=== PATIENT | male | born 1940 | race Caucasian/White ===

== ENCOUNTER 2018-05-13 15:51 | Emergency (ER) | payer MEDICARE ==
[~2018-05-13] VITALS: Ht 175.3 cm; Wt 63.6 kg
[~2018-05-13 15:51] MED LIST: APIDRA SC; ATENOLOL50 MG OR; AUGMENTIN500TAB PO; AZATHIOPRINE50 MG OR; BLOOD GLUCOSE TEST S SC; CELLCEPT500 MG OR; CIPRO250 MG OR; CIPROFLOXACN500 MG PO; CYCLOBENZAPR10 MG PO; DOXYCYCL HYC100 MG PO; FLEXERIL OR; FLUTICASONE50 MCG; FUROSEMIDE20 MG OR; HUMALOG 751000 UNITS SC; IMODIUM OR; LISINOPRIL20 MG OR; LISINOPRIL20 MG PO; LOMOTIL2.5 MG PO; MECLIZINE25 MG PO; MESTINON60 MG OR; MESTINON60 MG PO; MONITOR SC; NASACORT AQ55 MCG/AC; NOVOLOG MIX SC; NOVOLOG MIX100 U/ML SC; OMEPRAZOLE20 MG OR; ONE TOUCH ULTRA 100 XX; PREDNISONE5 MG PO; ROCEPHIN 1 GM1 GM IM; STARLIX120 MG OR; STARLIX60 MG PO; ZYRTEC10 MG OR; [UNRECOGNIZED DRUG - OTHER] PO
[2018-05-13 16:34] LABS: HEMATOCRIT 38.5 % (39.0-50.0); HEMOGLOBIN 12.2 g/dl (14.0-18.0); IMMATURE GRANULOCYTES 0.9 % (0.0-5.0); MEAN CELL VOLUME 87.5 fL CALC (80.0-100.0); MEAN CORPUSCULAR HGB 27.7 pG CALC (26.0-32.0); MEAN CORPUSCULAR HGB CONC 31.7 g/L CALC (32.0-36.0); NEUT# 10.55 thou/uL (1.82-7.42); RED BLOOD COUNT 4.4 mill/uL (4.70-6.10); RED CELL DISTRI WIDTH 13.9 % (11.5-15.5)
[2018-05-13 16:35] LABS: URINE BILIRUBIN - DIPSTICK NEGATIVE (NEGATIVE); URINE BLOOD DIPSTICK NEGATIVE (NEGATIVE); URINE COLOR YELLOW; URINE GLUCOSE - DIPSTICK NEGATIVE (NEGATIVE); URINE KETONE NEGATIVE (NEGATIVE); URINE LEUK ESTERASE NEGATIVE (NEGATIVE); URINE NITRITE - DIPSTICK NEGATIVE (Negative); URINE PH 5.5 (4.5-8.0); URINE PROTEIN - DIPSTICK TRACE mg/dL (NEG-TRACE); URINE SPECIFIC GRAVITY >=1.030; URINE UROBILINOGEN - DIPSTICK 0.2 E.U./dL (0.2)
[2018-05-13 16:36] LABS: URINE CLARITY CLEAR
[2018-05-13 16:49] LABS: ALBUMIN 3.8 g/dL (3.2-5.0); BILIRUBIN, TOTAL 0.4 mg/dL (0.0-1.4); POTASSIUM 4.9 mmol/l (3.5-5.1); TOTAL PROTEIN 6.7 g/dL (6.3-8.2)
[2018-05-13 16:51] LABS: CREATININE 4.7 mg/dL (0.7-1.3)
[2018-05-13] MEDS ORDERED: MESTINON TIMES180 MG PO (18:06)
[2018-05-13] MEDS ORDERED: PYRIDOSTIGMINE60 MG PO (18:12)
[2018-05-13] MEDS ORDERED: LISINOPRIL20 MG PO (18:18)
[2018-05-13] MEDS ORDERED: GLYBURIDE5 M1 PO (18:22)
[2018-05-13 19:20] VITALS: BP 113/64
== END 2018-05-13 19:20 | disposition short-term general hospital (02) ==
LOC: ED 15:51
PROVIDERS: Family Medicine
DX: N13.2 Hydronephrosis with renal and ureteral calculous obstruction (principal); K56.609 Unspecified intestinal obstruction, unspecified as to partial versus complete obstruction; E11.22 Type 2 diabetes mellitus with diabetic chronic kidney disease; N18.4 Chronic kidney disease, stage 4 (severe); G70.00 Myasthenia gravis without (acute) exacerbation

== ENCOUNTER 2018-05-27 17:20 | Emergency (ER) | payer MEDICARE ==
[~2018-05-27] VITALS: Ht 175.3 cm; Wt 61.4 kg
[~2018-05-27 17:20] MED LIST changes: +GLYBURIDE5 M1 PO; +MESTINON TIMES180 MG PO; +PYRIDOSTIGMINE60 MG PO
[2018-05-27 18:43] LABS: HEMATOCRIT 38.4 % (39.0-50.0); HEMOGLOBIN 12.3 g/dl (14.0-18.0); IMMATURE GRANULOCYTES 1.1 % (0.0-5.0); MEAN CELL VOLUME 87.5 fL CALC (80.0-100.0); NEUT# 6.87 thou/uL (1.82-7.42); RED BLOOD COUNT 4.39 mill/uL (4.70-6.10); RED CELL DISTRI WIDTH 13.9 % (11.5-15.5)
[2018-05-27 18:48] LABS: URINE BILIRUBIN - DIPSTICK NEGATIVE (NEGATIVE); URINE BLOOD DIPSTICK TRACE-INTACT (NEGATIVE); URINE COLOR YELLOW; URINE GLUCOSE - DIPSTICK 250 mg/dL (NEGATIVE); URINE KETONE NEGATIVE (NEGATIVE); URINE LEUK ESTERASE NEGATIVE (NEGATIVE); URINE NITRITE - DIPSTICK NEGATIVE (Negative); URINE PH 5.5 (4.5-8.0); URINE PROTEIN - DIPSTICK TRACE mg/dL (NEG-TRACE); URINE SPECIFIC GRAVITY >=1.030; URINE UROBILINOGEN - DIPSTICK 0.2 E.U./dL (0.2)
[2018-05-27 18:50] LABS: ALBUMIN 3.7 g/dL (3.2-5.0); BILIRUBIN, TOTAL 0.4 mg/dL (0.0-1.4); TOTAL PROTEIN 6.8 g/dL (6.3-8.2)
[2018-05-27 18:52] LABS: URINE CLARITY CLEAR
[2018-05-27 18:53] LABS: CREATININE 2.9 mg/dL (0.7-1.3); POTASSIUM 5.6 mmol/l (3.5-5.1)
[2018-05-27 20:32] VITALS: BP 140/70
== END 2018-05-27 20:37 | disposition home or self-care (01) ==
LOC: ED 17:20
PROVIDERS: Emergency Medicine
DX: M54.9 Dorsalgia, unspecified (principal); R93.5 Abnormal findings on diagnostic imaging of other abdominal regions, including retroperitoneum; K40.90 Unilateral inguinal hernia, without obstruction or gangrene, not specified as recurrent; N20.0 Calculus of kidney

== ENCOUNTER 2018-12-24 11:16 | Observation (INO) | payer MEDICARE ==
[~2018-12-24] VITALS: Ht 274.3 cm; Wt 66.4 kg
[2018-12-24 11:51] LABS: HEMATOCRIT 34.5 % (39.0-50.0); HEMOGLOBIN 10.6 g/dl (14.0-18.0); IMMATURE GRANULOCYTES 0.5 % (0.0-5.0); MEAN CELL VOLUME 90.3 fL CALC (80.0-100.0); MEAN CORPUSCULAR HGB 27.7 pG CALC (26.0-32.0); MEAN CORPUSCULAR HGB CONC 30.7 g/L CALC (32.0-36.0); NEUT# 11.4 thou/uL (1.82-7.42); RED BLOOD COUNT 3.82 mill/uL (4.70-6.10); RED CELL DISTRI WIDTH 14.3 % (11.5-15.5)
[2018-12-24 12:05] LABS: ALBUMIN 3.8 g/dL (3.2-5.0); TOTAL PROTEIN 7.1 g/dL (6.3-8.2)
[2018-12-24 12:15] LABS: BILIRUBIN, TOTAL 0.8 mg/dL (0.0-1.4); CREATININE 4.1 mg/dL (0.7-1.3); POTASSIUM 5.2 mmol/l (3.5-5.1)
[2018-12-24 14:42] VITALS: BP 104/63
[2018-12-24 17:38] LABS: URINE BILIRUBIN - DIPSTICK NEGATIVE (NEGATIVE); URINE BLOOD DIPSTICK SMALL (NEGATIVE); URINE COLOR YELLOW; URINE GLUCOSE - DIPSTICK NEGATIVE (NEGATIVE); URINE KETONE NEGATIVE (NEGATIVE); URINE LEUK ESTERASE NEGATIVE (NEGATIVE); URINE NITRITE - DIPSTICK NEGATIVE (Negative); URINE PROTEIN - DIPSTICK NEGATIVE (NEG-TRACE); URINE UROBILINOGEN - DIPSTICK 0.2 E.U./dL (0.2)
[2018-12-24 17:53] LABS: URINE SQUAMOUS EPITHELIAL CELL FEW EPI/hpf (0-FEW)
[2018-12-24 19:25] VITALS: BP 103/58
[2018-12-25] VITALS: BP 112/71
[2018-12-25 04:17] VITALS: BP 103/51
[2018-12-25 05:33] LABS: HEMATOCRIT 34.3 % (39.0-50.0); HEMOGLOBIN 10.6 g/dl (14.0-18.0); IMMATURE GRANULOCYTES 0.6 % (0.0-5.0); MEAN CELL VOLUME 89.8 fL CALC (80.0-100.0); MEAN CORPUSCULAR HGB 27.7 pG CALC (26.0-32.0); MEAN CORPUSCULAR HGB CONC 30.9 g/L CALC (32.0-36.0); PLATELET COUNT 266 thou/uL (130-400); RED BLOOD COUNT 3.82 mill/uL (4.70-6.10); RED CELL DISTRI WIDTH 14.1 % (11.5-15.5)
[2018-12-25 06:03] LABS: CREATININE 3.6 mg/dL (0.7-1.3); MAGNESIUM 2.2 mg/dL (1.6-2.3); TOTAL PROTEIN 5.7 g/dL (6.3-8.2)
[2018-12-25 06:08] LABS: BILIRUBIN, TOTAL 0.4 mg/dL (0.0-1.4)
[2018-12-25 06:40] LABS: MANUAL DIFFERENTIAL YES
[2018-12-25 06:43] LABS: BAND 4 % (0-8)
[2018-12-25 06:44] LABS: OTHER CELL TYPE 5
[2018-12-25 09:08] VITALS: BP 105/53
[2018-12-25 10:49] LABS: C. DIFFICILE TOXIN A&B NEGATIVE (NEGATIVE)
[2018-12-25 11:20] VITALS: BP 129/54
[2018-12-25 17:57] LABS: CPK 81 u/l (52-200)
[2018-12-25 17:59] LABS: MYOGLOBIN 238 ng/mL (0 - 121)
[2018-12-25 18:25] VITALS: BP 108/45
[2018-12-25 19:10] VITALS: BP 103/51
[2018-12-26 00:08] VITALS: BP 104/33
[2018-12-26 04:37] VITALS: BP 100/51
[2018-12-26 05:51] LABS: HEMATOCRIT 31.3 % (39.0-50.0); HEMOGLOBIN 9.8 g/dl (14.0-18.0); IMMATURE GRANULOCYTES 0.6 % (0.0-5.0); MEAN CELL VOLUME 88.2 fL CALC (80.0-100.0); MEAN CORPUSCULAR HGB 27.6 pG CALC (26.0-32.0); MEAN CORPUSCULAR HGB CONC 31.3 g/L CALC (32.0-36.0); RED BLOOD COUNT 3.55 mill/uL (4.70-6.10); RED CELL DISTRI WIDTH 13.9 % (11.5-15.5)
[2018-12-26 06:17] LABS: CREATININE 3.2 mg/dL (0.7-1.3); MAGNESIUM 2.2 mg/dL (1.6-2.3); POTASSIUM 4.8 mmol/l (3.5-5.1)
[2018-12-26 07:02] LABS: MANUAL DIFFERENTIAL YES; PLATELET COUNT 323 thou/uL (130-400)
[2018-12-26 07:03] LABS: IMMATURE CELLS 2 %
[2018-12-26 08:22] VITALS: BP 106/60
[2018-12-26 15:21] VITALS: BP 122/71
== END 2018-12-26 16:10 | disposition left against medical advice (07) ==
LOC: ED 11:16 → ED-I 12:10 → ED 12:10 → ED-I 12:22 → MS2 12:50 → ED 12:50 → MS2 12-26 16:10
PROVIDERS: Family Medicine; Internal Medicine; Nurse Practitioner Family; ADMIT Internal Medicine Nephrology; ATTEND Internal Medicine Nephrology
DX: N17.9 Acute kidney failure, unspecified (principal); E86.0 Dehydration; E87.5 Hyperkalemia; I95.9 Hypotension, unspecified; I12.9 Hypertensive chronic kidney disease with stage 1 through stage 4 chronic kidney disease, or unspecified chronic kidney disease; E11.22 Type 2 diabetes mellitus with diabetic chronic kidney disease; N18.4 Chronic kidney disease, stage 4 (severe); G70.00 Myasthenia gravis without (acute) exacerbation; H02.402 Unspecified ptosis of left eyelid; K40.20 Bilateral inguinal hernia, without obstruction or gangrene, not specified as recurrent; Z87.891 Personal history of nicotine dependence; Z87.442 Personal history of urinary calculi

== ENCOUNTER 2021-12-09 12:55 | Observation (INO) | payer MEDICARE ==
[2021-12-09] VITALS (8 sets, daily range): BP systolic 101–128; BP diastolic 57–80
[~2021-12-09] VITALS: Ht 175.3 cm; Wt 80.0 kg
[2021-12-09 13:20] LABS: HEMATOCRIT 40.8 % (39.0-50.0); HEMOGLOBIN 12.7 g/dl (14.0-18.0); IMMATURE GRANULOCYTES 0.7 % (0.0-5.0); MEAN CELL VOLUME 89.9 fL CALC (80.0-100.0); MEAN CORPUSCULAR HGB CONC 31.1 g/dL CAL (32.0-36.0); NEUT# 12.74 thou/uL (1.82-7.42); RED BLOOD COUNT 4.54 mill/uL (4.70-6.10); RED CELL DISTRI WIDTH 13.5 % (11.5-15.5)
[2021-12-09 13:32] LABS: ALBUMIN 3.9 g/dL (3.2-5.0); BILIRUBIN, TOTAL 0.4 mg/dL (0.0-1.4); CREATININE 3.2 mg/dL (0.7-1.3); POTASSIUM 4.5 mmol/l (3.5-5.1); TOTAL PROTEIN 6.8 g/dL (6.3-8.2)
[2021-12-10 00:19] VITALS: BP 138/71
[2021-12-10 04:31] VITALS: BP 117/63
[2021-12-10 05:49] LABS: HEMATOCRIT 37.7 % (39.0-50.0); HEMOGLOBIN 11.7 g/dl (14.0-18.0); IMMATURE GRANULOCYTES 1.1 % (0.0-5.0); MEAN CELL VOLUME 91.1 fL CALC (80.0-100.0); MEAN CORPUSCULAR HGB 28.3 pG CALC (26.0-32.0); NEUT# 5.02 thou/uL (1.82-7.42); RED BLOOD COUNT 4.14 mill/uL (4.70-6.10)
[2021-12-10 06:15] LABS: CREATININE 2.9 mg/dL (0.7-1.3); MAGNESIUM 2.2 mg/dL (1.6-2.3); POTASSIUM 4.6 mmol/l (3.5-5.1)
[2021-12-10 07:10] VITALS: BP 125/67
[2021-12-10] MEDS ORDERED: VANCOMYCIN HCL125 M1 PO (10:19)
[2021-12-10 10:45] VITALS: BP 134/50
[2021-12-10] MEDS ORDERED: (None)125 MG PO (12:23)
== END 2021-12-10 12:51 | disposition home or self-care (01) ==
LOC: ED 12:55 → ED-I 16:36 → ED 17:01 → MS2 17:01
PROVIDERS: Family Medicine; ADMIT Internal Medicine; ATTEND Internal Medicine
DX: A04.72 Enterocolitis due to Clostridium difficile, not specified as recurrent (principal); A04.4 Other intestinal Escherichia coli infections; E86.0 Dehydration; I12.9 Hypertensive chronic kidney disease with stage 1 through stage 4 chronic kidney disease, or unspecified chronic kidney disease; E11.22 Type 2 diabetes mellitus with diabetic chronic kidney disease; N18.4 Chronic kidney disease, stage 4 (severe); G70.00 Myasthenia gravis without (acute) exacerbation; Z87.442 Personal history of urinary calculi; Z79.84 Long term (current) use of oral hypoglycemic drugs; Z20.822 Contact with and (suspected) exposure to COVID-19; Z87.891 Personal history of nicotine dependence

== ENCOUNTER 2022-04-21 16:18 | Emergency (ER) | payer MEDICARE ==
[2022-04-21] VITALS (10 sets, daily range): BP systolic 113–136; BP diastolic 60–76
[~2022-04-21] VITALS: Ht 175.3 cm; Wt 65.8 kg
[~2022-04-21 16:18] MED LIST changes: +(None)125 MG PO; +VANCOMYCIN HCL125 M1 PO
[2022-04-21 17:05] LABS: HEMATOCRIT 37.2 % (39.0-50.0); HEMOGLOBIN 11.6 g/dl (14.0-18.0); IMMATURE GRANULOCYTES 0.4 % (0.0-5.0); MEAN CELL VOLUME 89.6 fL CALC (80.0-100.0); MEAN CORPUSCULAR HGB CONC 31.2 g/dL CAL (32.0-36.0); RED BLOOD COUNT 4.15 mill/uL (4.70-6.10); RED CELL DISTRI WIDTH 13.5 % (11.5-15.5)
[2022-04-21 17:17] LABS: ALBUMIN 3.8 g/dL (3.2-5.0); BILIRUBIN, TOTAL 0.4 mg/dL (0.0-1.4); CREATININE 2.9 mg/dL (0.7-1.3); POTASSIUM 4.9 mmol/l (3.5-5.1); TOTAL PROTEIN 6.6 g/dL (6.3-8.2)
[2022-04-21 18:11] LABS: URINE BILIRUBIN - DIPSTICK NEGATIVE (NEGATIVE); URINE BLOOD DIPSTICK TRACE-INTACT (NEGATIVE); URINE COLOR YELLOW; URINE GLUCOSE - DIPSTICK NEGATIVE (NEGATIVE); URINE KETONE NEGATIVE (NEGATIVE); URINE LEUK ESTERASE NEGATIVE (NEGATIVE); URINE PROTEIN - DIPSTICK TRACE mg/dL (NEG-TRACE); URINE UROBILINOGEN - DIPSTICK 0.2 E.U./dL (0.2)
[2022-04-21 18:24] LABS: URINE NITRITE - DIPSTICK NEGATIVE (Negative)
== END 2022-04-21 19:00 | disposition home or self-care (01) ==
LOC: ED 16:18
PROVIDERS: Nurse Practitioner
DX: E86.0 Dehydration (principal); E11.22 Type 2 diabetes mellitus with diabetic chronic kidney disease; N18.4 Chronic kidney disease, stage 4 (severe); G70.00 Myasthenia gravis without (acute) exacerbation; Z79.84 Long term (current) use of oral hypoglycemic drugs

== ENCOUNTER 2022-04-29 11:02 | Emergency (ER) | payer MEDICARE ==
[~2022-04-29] VITALS: Ht 175.3 cm; Wt 59.0 kg
[2022-04-29] MEDS ORDERED: KEFLEX500 MG PO (13:30)
[2022-04-29 13:56] VITALS: BP 132/70
== END 2022-04-29 14:09 | disposition home or self-care (01) ==
LOC: ED 11:02
DX: L03.011 Cellulitis of right finger (principal); E11.22 Type 2 diabetes mellitus with diabetic chronic kidney disease; N18.4 Chronic kidney disease, stage 4 (severe); G70.00 Myasthenia gravis without (acute) exacerbation

== ENCOUNTER 2022-09-25 20:22 | Emergency (ER) | payer MEDICARE ==
[2022-09-25] VITALS (11 sets, daily range): BP systolic 129–152; BP diastolic 70–90
[~2022-09-25] VITALS: Ht 175.3 cm; Wt 65.2 kg
[~2022-09-25 20:22] MED LIST changes: +KEFLEX500 MG PO
[2022-09-25 22:53] LABS: EOS% 2.5 % (0-8); HEMATOCRIT 39.6 % (39.0-50.0); HEMOGLOBIN 12.1 g/dl (14.0-18.0); IMMATURE GRANULOCYTES 0.9 % (0.0-5.0); LYMPH% 11.1 % (15-41); MEAN CELL VOLUME 89.4 fL CALC (80.0-100.0); MEAN CORPUSCULAR HGB 27.3 pG CALC (26.0-32.0); MEAN CORPUSCULAR HGB CONC 30.6 g/dL CAL (32.0-36.0); MONO% 4.7 % (2-13); NEUT# 6.51 thou/uL (1.82-7.42); NEUT% 80.8 % (42-76); RED BLOOD COUNT 4.43 mill/uL (4.70-6.10); RED CELL DISTRI WIDTH 13.4 % (11.5-15.5)
[2022-09-26 00:06] VITALS: BP 137/86
[2022-09-26 00:15] VITALS: BP 129/68
[2022-09-26 00:23] LABS: ALBUMIN 3.8 g/dL (3.2-5.0); ALKALINE PHOSPHATASE 82 u/l (38-126); ANION GAP 12 (6-22 (CALC)); BUN 30 mg/dL (8-23); BUN/CREATININE RATIO 11 (12-20 (CALC)); CARBON DIOXIDE 28 mmol/l (22-30); CHLORIDE 102 mmol/l (95-108); CREATININE 2.7 mg/dL (0.7-1.3); GFR FOR AFR.AMER. 28 ML/MIN (>=60 (CALC)); GFR OTHER RACES 23 ML/MIN (>=60 (CALC)); POTASSIUM 4.7 mmol/l (3.5-5.1); SGOT/AST 25 u/l (19-48); SODIUM 137 mmol/l (137-146); TOTAL PROTEIN 6.4 g/dL (6.3-8.2)
[2022-09-26 00:24] LABS: BILIRUBIN, TOTAL 0.2 mg/dL (0.2-1.3)
[2022-09-26 00:30] VITALS: BP 150/82
[2022-09-26 00:45] VITALS: BP 149/82
[2022-09-26 00:54] VITALS: BP 149/82
[2022-09-26 01:05] LABS: URINE BILIRUBIN - DIPSTICK NEGATIVE (NEGATIVE); URINE BLOOD DIPSTICK NEGATIVE (NEGATIVE); URINE COLOR YELLOW; URINE GLUCOSE - DIPSTICK 250 mg/dL (NEGATIVE); URINE KETONE NEGATIVE (NEGATIVE); URINE LEUK ESTERASE NEGATIVE (NEGATIVE); URINE NITRITE - DIPSTICK NEGATIVE (Negative); URINE PROTEIN - DIPSTICK TRACE mg/dL (NEG-TRACE); URINE UROBILINOGEN - DIPSTICK 0.2 E.U./dL (0.2)
== END 2022-09-26 01:06 | disposition home or self-care (01) ==
LOC: ED 20:22
PROVIDERS: Emergency Medicine
DX: R42 Dizziness and giddiness (principal); E11.65 Type 2 diabetes mellitus with hyperglycemia; E11.22 Type 2 diabetes mellitus with diabetic chronic kidney disease; N18.4 Chronic kidney disease, stage 4 (severe); G70.00 Myasthenia gravis without (acute) exacerbation; Z79.84 Long term (current) use of oral hypoglycemic drugs; Z20.822 Contact with and (suspected) exposure to COVID-19

== ENCOUNTER 2023-08-27 11:04 | Emergency (ER) | payer MEDICARE ==
[~2023-08-27] VITALS: Ht 175.3 cm; Wt 63.5 kg
[2023-08-27 12:18] VITALS: BP 152/92
[2023-08-27 12:31] VITALS: BP 130/74
[2023-08-27 12:45] VITALS: BP 100/67
[2023-08-27] MEDS ORDERED: VIBRAMYCIN100 M2 PO (12:54)
[2023-08-27 13:00] VITALS: BP 125/69
== END 2023-08-27 13:00 | disposition home or self-care (01) ==
LOC: ED 11:04
DX: L02.411 Cutaneous abscess of right axilla (principal); L03.111 Cellulitis of right axilla; E11.22 Type 2 diabetes mellitus with diabetic chronic kidney disease; N18.4 Chronic kidney disease, stage 4 (severe); G70.00 Myasthenia gravis without (acute) exacerbation; Z79.84 Long term (current) use of oral hypoglycemic drugs